=== PATIENT | female | born 2000 | race Caucasian/White ===

== ENCOUNTER 2022-10-08 12:46 | Outpatient (CLI) | payer OTHER ==
--- NOTE | 2022-10-08 15:51 | Ultrasound Report ---
PROCEDURE: OB Detailed Eval INDICATIONS: SUPERVISION OF OUTSIDE/PRIOR DATING DATA: Last menstrual period (LMP): 03/21/2022. LMP-based estimated date of delivery (JOSE): 12/26/2022. First dating scan (date and location): 05/30/2022. Estimated date of delivery (JOSE) from first dating scan: 01/09/2023. The below data below was generated using the ultrasound JOSE of 01/09/2023 TECHNIQUE: Real-time scanning was performed of the fetus, with image documentation and biometric measurements. Endovaginal scanning: No COMPARISON: None. FINDINGS: General: A single living intrauterine gestation is present. Presentation: Cephalic Placenta: Placental position is anterior, without previa. Amniotic fluid index: 18 cm, 36th percentile for gestational age. heart rate: 152 beats per minute. Maternal cervical canal: 3.2 cm long; normal length is 2.5 cm or more. biometrics: Biparietal diameter: 6.5 cm, 26 weeks 1 day Head circumference: 24.5 cm, 26 weeks 4 days Abdominal circumference: 21.6 cm, 26 weeks 1 day Femur length: 5.2 cm, 27 weeks 4 days Estimated gestational age from initial scan: not applicable. Composite gestational age from present scan: 26 weeks 4 days Estimated weight and percentile: 968 g, 36 percentile Measurement variability in biometric dating: +/- 10 days from 12-20 weeks gestation, +/- 2 weeks from 20-30 weeks gestation, +/- 3 weeks at 30 weeks gestation or later. Anatomic survey: Neuro: Ventricles are normal at less than 10 mm. Cisterna magna is normal at 3-11 mm. Cerebellum i s normal in size and morphology. Nuchal skin fold: Normal at less than 6 mm between 14 and 20 weeks gestational age. Face: Nose and lips, facial profile are normal. Spine: No evidence for spina bifida. Heart: 4-chambered heart is present, with normal ventricular outflow tracts. Diaphragm: Diaphragm is intact. Stomach: Left-sided stomach is present. Kidneys: No hydronephrosis. Normal is less than 5 mm in 2nd trimester, less than 7 mm in 3rd trimester. Cord: 3 vessel cord has orthotopic insertion. Bladder: Normal in size. Extremities: All 4 extremities are visualized. IMPRESSION: 1.Single living intrauterine at 26 weeks 4 days based on today's scan, concordant with firs t ultrasound. 2.Normal anatomy survey. Reviewed by: Matt Chan on 10/08/2022 3:50 PM PST Approved by: Matt Chan on 10/08/2022 3:50 PM PST Station ID: [id number]
== END 2022-10-08 12:47 | disposition home or self-care (01) ==
LOC: DI 12:46
PROVIDERS: ATTEND Nurse Practitioner
DX: Z34.92 Encounter for supervision of normal pregnancy, unspecified, second trimester (principal); Z3A.26 26 weeks gestation of pregnancy; Z36.89 Encounter for other specified antenatal screening

== ENCOUNTER 2022-10-10 10:15 | Outpatient (CLI) | payer OTHER ==
[2022-10-14 01:07] LABS: CHLAMYDIA TRACHOMATIS DNA NEGATIVE (NEGATIVE); NEISSERIA GONORRHOEAE DNA NEGATIVE (NEGATIVE); TRICHOMONAS VAGINALIS DNA NEGATIVE (NEGATIVE)
== END 2022-10-10 23:59 | disposition home or self-care (01) ==
LOC: LAB.WC 10:15
PROVIDERS: ATTEND Nurse Practitioner
DX: Z11.3 Encounter for screening for infections with a predominantly sexual mode of transmission (principal)
CPT/HCPCS: 87491; 87591; 87661

== ENCOUNTER 2022-10-21 11:39 | Outpatient (CLI) | payer OTHER ==
[2022-10-21 12:05] LABS: BASOPHILS % (AUTO) 0.2 %; EOSINOPHILS # (AUTO) 0.1 10^3/uL (0.0-0.7); EOSINOPHILS % (AUTO) 0.7 %; HCT - HEMATOCRIT 33.1 % (37.0-47.0); HGB - HEMOGLOBIN 10.6 g/dL (12.0-16.0); LYMPHOCYTES # (AUTO) 1.8 10^3/uL (1.5-3.5); LYMPHOCYTES % (AUTO) 20.4 %; MEAN CORPUSCULAR HEMOGLOBIN 27.7 pg (27.0-31.0); MEAN CORPUSCULAR VOLUME 86.6 fL (81.0-99.0); MONOCYTES # (AUTO) 0.8 10^3/uL (0.0-1.0); MONOCYTES % (AUTO) 8.8 %; NEUTROPHILS % (AUTO) 68.2 %; PLT - PLATELET COUNT 338 10^3/uL (130-450); RED BLOOD COUNT 3.82 10^6/uL (4.20-5.40); RED CELL DISTRIBUTION WIDTH 13.2 % (12.0-15.0); WHITE BLOOD COUNT 8.9 x10^3/uL (4.8-10.8)
== END 2022-10-21 11:40 | disposition home or self-care (01) ==
LOC: LAB 11:39
PROVIDERS: ATTEND Nurse Practitioner
DX: Z34.90 Encounter for supervision of normal pregnancy, unspecified, unspecified trimester (principal); Z36.89 Encounter for other specified antenatal screening
CPT/HCPCS: 36415; 82950; 85025; 86787

== ENCOUNTER 2022-10-23 11:35 | Outpatient (CLI) | payer OTHER ==
[2022-10-23 13:03] LABS: HCT - HEMATOCRIT 30.9 % (37.0-47.0); HGB - HEMOGLOBIN 9.9 g/dL (12.0-16.0); MEAN CORPUSCULAR HEMOGLOBIN 27.6 pg (27.0-31.0); MEAN CORPUSCULAR VOLUME 86.1 fL (81.0-99.0); MEAN PLATELET VOLUME 9.9 fL (7.9-10.8); RED BLOOD COUNT 3.59 10^6/uL (4.20-5.40); RED CELL DISTRIBUTION WIDTH 13.1 % (12.0-15.0); WHITE BLOOD COUNT 9.2 x10^3/uL (4.8-10.8)
== END 2022-10-23 11:36 | disposition home or self-care (01) ==
LOC: LAB 11:35
PROVIDERS: ATTEND Nurse Practitioner
DX: O99.019 Anemia complicating pregnancy, unspecified trimester (principal); Z36.89 Encounter for other specified antenatal screening
CPT/HCPCS: 36415; 82728; 82950; 85027

== ENCOUNTER 2022-11-14 20:33 | Outpatient (CLI) | payer OTHER ==
[2022-11-14 21:06] VITALS: BP 133/67
[2022-11-14] MEDS ORDERED: LACTATED RINGERS 1,000 ML IV STA (21:18)
[2022-11-14 22:10] LABS: BASOPHILS % (AUTO) 0.2 %; EOSINOPHILS # (AUTO) 0.1 10^3/uL (0.0-0.7); EOSINOPHILS % (AUTO) 0.7 %; HCT - HEMATOCRIT 35.6 % (37.0-47.0); HGB - HEMOGLOBIN 11.2 g/dL (12.0-16.0); LYMPHOCYTES # (AUTO) 2.4 10^3/uL (1.5-3.5); LYMPHOCYTES % (AUTO) 25.6 %; MEAN CORPUSCULAR HEMOGLOBIN 27.5 pg (27.0-31.0); MEAN CORPUSCULAR HGB CONC 31.5 g/dL (32.0-36.0); MEAN CORPUSCULAR VOLUME 87.3 fL (81.0-99.0); MEAN PLATELET VOLUME 10.4 fL (7.9-10.8); MONOCYTES % (AUTO) 10.7 %; NEUTROPHILS # (AUTO) 5.8 10^3/uL (1.5-6.6); NEUTROPHILS % (AUTO) 61.5 %; PLT - PLATELET COUNT 337 10^3/uL (130-450); RED BLOOD COUNT 4.08 10^6/uL (4.20-5.40); RED CELL DISTRIBUTION WIDTH 14.6 % (12.0-15.0); WHITE BLOOD COUNT 9.5 x10^3/uL (4.8-10.8)
--- NOTE | 2022-11-14 22:28 | PROVIDER PROGRESS NOTE ---
- HPI Chief Complaint: Pain, non-labor Current : Current EDU 01/09/23 Gestation 32 Weeks and 0 Days 2 Para 0 Vital Signs Temperature 98.4 F 11/14/22 21:05 Heart Rate 105 H 11/14/22 21:05 Respiratory Rate 17 11/14/22 21:05 Blood Pressure 133/67 H 11/14/22 21:05 O2 Saturation 100 11/14/22 21:05 Temperature 98.4 F 11/14/22 21:50 Heart Rate 105 H 11/14/22 21:05 Respiratory Rate 17 11/14/22 21:05 Blood Pressure 133/67 H 11/14/22 21:05 O2 Saturation 100 11/14/22 21:05 If not protocol: Oxygen Flow, liters/minute - Procedures OB Procedure Performed: NST Diagnosis/Indication for NST: labor NST Procedure: NST Procedure Start Date 11/14/22 Start Time 20:44 Patient States Movement Yes Baseline: 150 Moderate variability Presents acceleration 15 x 15 Absence deceleration Category 1 Service Date of procedure: 11/14/22 Findings: False labor at 32 weeks [place] contractions - Plan Plan: Repeat his CBC which showed 11.2/35.6 Hydration and reassurance helped her and she is willing to go home tonight. She is scheduled to have iron infusion on
--- NOTE | 2022-11-14 22:35 | PROCEDURE REPORT ---
- HPI Diagnosis/Indication for NST: labor Current EDU 01/09/23 Gestation 32 Weeks and 0 Days 2 Para 0 Vital Signs Temperature 98.4 F 11/14/22 21:05 Heart Rate 105 H 11/14/22 21:05 Respiratory Rate 17 11/14/22 21:05 Blood Pressure 133/67 H 11/14/22 21:05 O2 Saturation 100 11/14/22 21:05 Temperature 98.4 F 11/14/22 21:50 Heart Rate 105 H 11/14/22 21:05 Respiratory Rate 17 11/14/22 21:05 Blood Pressure 133/67 H 11/14/22 21:05 O2 Saturation 100 11/14/22 21:05 If not protocol: Oxygen Flow, liters/minute - NST Procedure NST Procedure Start Date 11/14/22 Start Time 20:44 Patient States Movement Yes Baseline: 150 Moderate variability Present acceleration Absent deceleration Category 1 - Results and Plan Findings/Impression: Reactive nonstress test Plan: She will be discharged tonight and will follow-up at the clinic for scheduled appointment
== END 2022-11-14 22:35 | disposition home or self-care (01) ==
LOC: FBP 20:33 → UNDOADMOB 20:33 → WFO 20:33 → UNDODISOB 22:35 → WFO 22:35 → EDSTATUS 11-17 15:08
PROVIDERS: ATTEND Obstetrics & Gynecology
DX: O47.03 False labor before 37 completed weeks of gestation, third trimester (principal); Z3A.32 32 weeks gestation of pregnancy
CPT/HCPCS: 59025; 85025; 96360; 99215; J7120

== ENCOUNTER 2022-11-24 09:58 | Outpatient (CLI) | payer OTHER ==
[2022-11-24 10:28] LABS: BASOPHILS % (AUTO) 0.3 %; EOSINOPHILS # (AUTO) 0.1 10^3/uL (0.0-0.7); EOSINOPHILS % (AUTO) 0.9 %; HCT - HEMATOCRIT 32.5 % (37.0-47.0); HGB - HEMOGLOBIN 10.3 g/dL (12.0-16.0); LYMPHOCYTES # (AUTO) 1.9 10^3/uL (1.5-3.5); LYMPHOCYTES % (AUTO) 21.3 %; MEAN CORPUSCULAR HEMOGLOBIN 27.3 pg (27.0-31.0); MEAN CORPUSCULAR HGB CONC 31.7 g/dL (32.0-36.0); MEAN CORPUSCULAR VOLUME 86.2 fL (81.0-99.0); MEAN PLATELET VOLUME 9.7 fL (7.9-10.8); MONOCYTES # (AUTO) 0.9 10^3/uL (0.0-1.0); MONOCYTES % (AUTO) 10.4 %; NEUTROPHILS # (AUTO) 5.7 10^3/uL (1.5-6.6); PLT - PLATELET COUNT 300 10^3/uL (130-450); RED BLOOD COUNT 3.77 10^6/uL (4.20-5.40); RED CELL DISTRIBUTION WIDTH 14.4 % (12.0-15.0)
[2022-11-24] MEDS ORDERED: FERRIC GLUCONATE 125 MG in SODIUM CHLORIDE 0.9% 100ML 100 ML IV ONE (10:30)
[2022-11-24 10:40] LABS: ALBUMIN 2.8 g/dL (3.2-5.5); ALBUMIN/GLOBULIN RATIO 0.9 (1.0-2.2); BILIRUBIN,TOTAL 0.5 mg/dL (0.2-1.0); CALCIUM 8.7 mg/dL (8.5-10.3); CREATININE 0.5 mg/dL (0.4-1.0); POTASSIUM 3.9 mmol/L (3.5-5.0)
--- NOTE | 2022-11-24 10:56 | PROVIDER PROGRESS NOTE ---
- Procedures NST Procedure: NST Procedure Start Time 20:44 Stop Time 22:20 - Plan Plan: 22yo at 33.3w with iron deficiency anemia in , third trimester. Presented for scheduled iron infusion. Also with persistent itching in . - Ferrlicit x1 given, CBC - CMP and bile acids drawn, follow up.
[2022-11-24 11:07] VITALS: BP 111/58
== END 2022-11-24 12:05 | disposition home or self-care (01) ==
LOC: WFO 09:58 → FBP 10:02 → WFO 12:05
PROVIDERS: ATTEND Obstetrics & Gynecology
DX: O99.013 Anemia complicating pregnancy, third trimester (principal); D50.9 Iron deficiency anemia, unspecified; Z3A.33 33 weeks gestation of pregnancy; O26.893 Other specified pregnancy related conditions, third trimester; L29.9 Pruritus, unspecified
CPT/HCPCS: 36415; 80053; 82239; 85025; 96365; J2916

== ENCOUNTER 2022-11-29 09:15 | Outpatient (CLI) | payer OTHER ==
[2022-11-29] MEDS ORDERED: LACTATED RINGERS 1,000 ML IV SCH (10:00)
[2022-11-29 10:06] LABS: BASOPHILS % (AUTO) 0.3 %; EOSINOPHILS % (AUTO) 0.2 %; LYMPHOCYTES # (AUTO) 0.7 10^3/uL (1.5-3.5); LYMPHOCYTES % (AUTO) 7.5 %; MEAN CORPUSCULAR HEMOGLOBIN 27.3 pg (27.0-31.0); MEAN CORPUSCULAR HGB CONC 32.3 g/dL (32.0-36.0); MEAN CORPUSCULAR VOLUME 84.7 fL (81.0-99.0); MEAN PLATELET VOLUME 10.4 fL (7.9-10.8); MONOCYTES # (AUTO) 0.9 10^3/uL (0.0-1.0); NEUTROPHILS # (AUTO) 7.5 10^3/uL (1.5-6.6); NEUTROPHILS % (AUTO) 79.2 %; NRBC ABSOLUTE COUNT (AUTO) 0.02 x10^3/uL; NUCLEATED RED BLOOD CELLS AUTO 0.2 /100WBC; PLT - PLATELET COUNT 234 10^3/uL (130-450); RED BLOOD COUNT 3.66 10^6/uL (4.20-5.40); RED CELL DISTRIBUTION WIDTH 15.9 % (12.0-15.0); WHITE BLOOD COUNT 9.5 x10^3/uL (4.8-10.8)
[2022-11-29 10:18] LABS: ALBUMIN 2.7 g/dL (3.2-5.5); ALBUMIN/GLOBULIN RATIO 0.8 (1.0-2.2); BILIRUBIN,TOTAL 0.5 mg/dL (0.2-1.0); CALCIUM 8.7 mg/dL (8.5-10.3); CREATININE 0.7 mg/dL (0.4-1.0); POTASSIUM 3.8 mmol/L (3.5-5.0); TOTAL PROTEIN 6.1 g/dL (6.7-8.2)
[2022-11-29] MEDS ORDERED: ACETAMINOPHEN 325 MG TABLET PO PRN ×2 (10:50→11:01)
[2022-11-29] MEDS ORDERED: ONDANSETRON 4 MG/2 ML VIAL IVP PRN (10:50)
--- NOTE | 2022-11-29 10:58 | PROVIDER PROGRESS NOTE ---
- HPI Chief Complaint: GI symptoms Current : Vital Signs Temperature 99.5 F 11/29/22 09:28 Temperature 99.5 F 11/29/22 10:34 Heart Rate Respiratory Rate Blood Pressure O2 Saturation If not protocol: Oxygen Flow, liters/minute - Procedures OB Procedure Performed: NST (Reactive nonstress test) Diagnosis/Indication for NST: Other (Coughing and generalized aches and vomiting) NST Procedure: NST Procedure Start Time 20:44 Stop Time 22:20 Baseline: 130 Moderate variability Present acceleration Negative deceleration Impression: Reactive nonstress test - Plan Plan: This 22-year-old 2 para 0 AB 1 34 weeks 1 day presented to the units with chief complaint of coughing nausea vomiting and generalized aches and she has not feeling good since . She was seen at the clinic on November 24 and she was scheduled to have iron infusion on Thursday. She was feeling good until when she developed all above-mentioned symptoms. Her just returned 7 days ago and he was ill before he returned. She had CBC with differential and CMP which showed anemia and other results were not remarkable. After she came she was given IV fluid and she started to feel better. She is going to be given Tylenol for aches and Zofran for her nausea problems and when she has a stabilized that she is going to be discharged home today. heart tones showed category 1 and nonstress test was reactive
--- NOTE | 2022-11-29 11:06 | PROCEDURE REPORT ---
- HPI Diagnosis/Indication for NST: Other (Severe coughing with nausea vomiting and generalized aches) Vital Signs Temperature 99.5 F 11/29/22 09:28 Temperature 99.5 F 11/29/22 10:34 Heart Rate Respiratory Rate Blood Pressure O2 Saturation If not protocol: Oxygen Flow, liters/minute - NST Procedure NST Procedure 34 weeks 1 day gestation Start Time 20:44 Stop Time 22:20 Indication: Generalized aches with nausea vomiting and severe coughing Baseline: 130 Moderate variability Present acceleration 15/15 Negative deceleration Impression reactive nonstress test Plan discharge home and keep the scheduled appointment
[2022-11-29 13:42] VITALS: BP 91/45
== END 2022-11-29 13:57 | disposition home or self-care (01) ==
LOC: WFO 09:15 → FBP 09:18 → WFO 13:57
PROVIDERS: ATTEND Obstetrics & Gynecology
DX: O99.891 Other specified diseases and conditions complicating pregnancy (principal); R05.9 Cough, unspecified; R11.2 Nausea with vomiting, unspecified; Z3A.34 34 weeks gestation of pregnancy; Z20.822 Contact with and (suspected) exposure to COVID-19
CPT/HCPCS: 36415; 59025; 80053; 85025; 87635; 96361; 96374; 99214; A9270; J7120

== ENCOUNTER 2022-12-01 10:02 | Outpatient (CLI) | payer OTHER ==
[2022-12-01] MEDS ORDERED: FERRIC GLUCONATE 125 MG in SODIUM CHLORIDE 0.9% 100ML 100 ML IV ONE (10:40)
[2022-12-01 11:02] VITALS: BP 106/61
== END 2022-12-01 12:05 | disposition home or self-care (01) ==
LOC: WFO 10:02 → FBP 10:03 → WFO 12:05
PROVIDERS: ATTEND Nurse Practitioner
DX: O99.013 Anemia complicating pregnancy, third trimester (principal); D50.9 Iron deficiency anemia, unspecified; Z3A.34 34 weeks gestation of pregnancy
CPT/HCPCS: 96365; J2916

== ENCOUNTER 2022-12-08 09:58 | Outpatient (CLI) | payer OTHER ==
[2022-12-08 10:34] VITALS: BP 111/64
[2022-12-08] MEDS ORDERED: FERRIC GLUCONATE 125 MG in SODIUM CHLORIDE 0.9% 100ML 100 ML IV ONE (10:40)
== END 2022-12-08 11:40 | disposition home or self-care (01) ==
LOC: WFO 09:58 → FBP 09:59 → WFO 11:40
PROVIDERS: ATTEND Obstetrics & Gynecology
DX: O99.013 Anemia complicating pregnancy, third trimester (principal); D50.9 Iron deficiency anemia, unspecified; Z3A.35 35 weeks gestation of pregnancy
CPT/HCPCS: 96365; J2916

== ENCOUNTER 2022-12-12 10:15 | Outpatient (CLI) | payer OTHER ==
[2022-12-12 10:44] LABS: RUPTURE OF MEMBRANES PLUS NEGATIVE (NEGATIVE)
== END 2022-12-12 23:59 | disposition home or self-care (01) ==
LOC: LAB 10:15
PROVIDERS: ATTEND Nurse Practitioner
DX: Z36.89 Encounter for other specified antenatal screening (principal)
CPT/HCPCS: 84112; 87797

== ENCOUNTER 2022-12-19 10:20 | Outpatient (CLI) | payer OTHER ==
[2022-12-19 10:31] LABS: HCT - HEMATOCRIT 37.1 % (37.0-47.0); HGB - HEMOGLOBIN 11.7 g/dL (12.0-16.0); MEAN CORPUSCULAR HEMOGLOBIN 26.9 pg (27.0-31.0); MEAN CORPUSCULAR HGB CONC 31.5 g/dL (32.0-36.0); MEAN CORPUSCULAR VOLUME 85.3 fL (81.0-99.0); MEAN PLATELET VOLUME 10.4 fL (7.9-10.8); RED BLOOD COUNT 4.35 10^6/uL (4.20-5.40); RED CELL DISTRIBUTION WIDTH 16.6 % (12.0-15.0); WHITE BLOOD COUNT 8.9 x10^3/uL (4.8-10.8)
[2022-12-20 05:12] LABS: RPR Non Reactive (Non Reactive)
[2022-12-21 05:08] LABS: HCV AB Non Reactive (Non Reactive)
== END 2022-12-19 10:21 | disposition home or self-care (01) ==
LOC: LAB 10:20
PROVIDERS: ATTEND Obstetrics & Gynecology
DX: O99.019 Anemia complicating pregnancy, unspecified trimester (principal); D50.9 Iron deficiency anemia, unspecified
CPT/HCPCS: 36415; 82728; 85027; 86592; 86803

== ENCOUNTER 2022-12-25 10:38 | Outpatient (CLI) | payer OTHER ==
[2022-12-25 11:00] VITALS: BP 120/76
--- NOTE | 2022-12-25 13:20 | PROCEDURE REPORT ---
- HPI Diagnosis/Indication for NST: Other Current EDU 01/09/23 Gestation 37 Weeks and 6 Days 2 Para 0 Vital Signs Temperature 98.2 F 12/25/22 10:45 Heart Rate 100 12/25/22 10:45 Respiratory Rate 17 12/25/22 10:45 Blood Pressure 120/76 12/25/22 10:45 O2 Saturation 100 12/25/22 10:45 Temperature 98.2 F 12/25/22 11:00 Heart Rate 100 12/25/22 10:45 Respiratory Rate 17 12/25/22 10:45 Blood Pressure 120/76 12/25/22 10:45 O2 Saturation 100 12/25/22 10:45 If not protocol: Oxygen Flow, liters/minute - NST Procedure NST Procedure Start Date 12/25/22 Start Time 10:48 Stop Time 11:25 Vibroacoustic Stimulation Used No Patient States Movement Yes EFM: 140s, moderate variability, positive accelerations, no decelerations [place]: contractions q4m NST reactive/Cat 2 Performed and read on 12/25/22
--- NOTE | 2022-12-25 13:23 | PROVIDER PROGRESS NOTE ---
- HPI Chief Complaint: Labor Check Current : Current EDU 01/09/23 Gestation 37 Weeks and 6 Days 2 Para 0 Vital Signs Temperature 98.2 F 12/25/22 10:45 Heart Rate 100 12/25/22 10:45 Respiratory Rate 17 12/25/22 10:45 Blood Pressure 120/76 12/25/22 10:45 O2 Saturation 100 12/25/22 10:45 Temperature 98.2 F 12/25/22 11:00 Heart Rate 100 12/25/22 10:45 Respiratory Rate 17 12/25/22 10:45 Blood Pressure 120/76 12/25/22 10:45 O2 Saturation 100 12/25/22 10:45 If not protocol: Oxygen Flow, liters/minute - Procedures OB Procedure Performed: NST NST Procedure: NST Procedure Start Date 12/25/22 Start Time 10:48 Stop Time 11:25 Vibroacoustic Stimulation Used No Patient States Movement Yes EFM: 140s, moderate variability, positive accelerations, no decelerations [place]: contractions q4m NST reactive/Cat 1 Performed and read 12/25/22 Service Date of procedure: 12/25/22 - Plan Plan: 22yo at 37.6w presenting with contractions. Denies leaking fluid or vaginal bleeding. Good movement. care at [facility]. Complicated by anemia treated with iron infusion. VSS GEN: NAD CV: Regular rate NST reactive SVE per RN: /-1 22yo at 37.6w, false labor - NST reactive - Labor precautions - Follow up as scheduled
== END 2022-12-25 11:45 | disposition home or self-care (01) ==
LOC: WFO 10:38 → FBP 10:40 → WFO 11:45
PROVIDERS: ATTEND Obstetrics & Gynecology
DX: O47.1 False labor at or after 37 completed weeks of gestation (principal); O99.013 Anemia complicating pregnancy, third trimester; Z3A.37 37 weeks gestation of pregnancy
CPT/HCPCS: 59025; 99213; 99215

== ENCOUNTER 2023-07-07 09:11 | Outpatient (CLI) | payer OTHER ==
--- NOTE | 2023-07-07 12:40 | Ultrasound Report ---
PROCEDURE: Abdomen Limited INDICATIONS: ABD MASS TECHNIQUE: Real-time focused scanning was performed of the abdomen, with image documentation. COMPARISONS: None. FINDINGS: Periumbilical region was scanned to assess for hernia. There are no visible fascial defects or hernia sac in the subcutaneous tissue. No change of Valsalva maneuver. IMPRESSION: 1. No sonographic evidence of anterior abdominal wall hernia. Consider noncontrast CT scan with Valsa lva maneuver if there is ongoing concern for hernia. Reviewed by: Fani Herbert MD on 07/07/2023 12:39 PM PST Approved by: Fani Herbert MD on 07/07/2023 12:39 PM PST Station ID: [id number]
== END 2023-07-07 09:12 | disposition home or self-care (01) ==
LOC: DI 09:11
PROVIDERS: ATTEND Nurse Practitioner
DX: R19.00 Intra-abdominal and pelvic swelling, mass and lump, unspecified site (principal)

== ENCOUNTER 2023-07-14 16:15 | Outpatient (CLI) | payer OTHER ==
[2023-07-14 16:35] LABS: HCT - HEMATOCRIT 42.9 % (37.0-47.0); HGB - HEMOGLOBIN 13.8 g/dL (12.0-16.0); MEAN CORPUSCULAR HEMOGLOBIN 27.3 pg (27.0-31.0); MEAN CORPUSCULAR HGB CONC 32.2 g/dL (32.0-36.0); MEAN PLATELET VOLUME 9.7 fL (7.9-10.8); RED BLOOD COUNT 5.05 10^6/uL (4.20-5.40); RED CELL DISTRIBUTION WIDTH 12.9 % (12.0-15.0); WHITE BLOOD COUNT 8.1 x10^3/uL (4.8-10.8)
[2023-07-14 17:18] LABS: THYROID STIMULATING HORMONE 1.11 uIU/mL (0.34-5.60)
[2023-07-14 17:24] LABS: FERRITIN 15.8 ng/mL (11.0-306.8)
== END 2023-07-14 16:16 | disposition home or self-care (01) ==
LOC: LAB 16:15
PROVIDERS: ATTEND Nurse Practitioner
DX: D64.9 Anemia, unspecified (principal); N93.9 Abnormal uterine and vaginal bleeding, unspecified
CPT/HCPCS: 36415; 82728; 84443; 84702; 85027

== ENCOUNTER 2023-12-28 20:31 | Emergency (ER) | payer OTHER ==
[2023-12-28 20:44] VITALS: O2SAT 100
--- NOTE | 2023-12-28 20:50 | ED Physician Documentation ---
History of Present Illness - Stated complaint Stated Complaint: L SIDE PX - Chief complaint Chief Complaint: Abd Pain - Additonal information Additional information: 23-year-old female presented to the emergency department with left-sided flank pain. The pain is intermittent but ongoing and getting progressively worse x 2 months. No associated nausea, vomiting, dysuria, hematuria. Reports had similar pain a year ago on the right side which led to her gallbladder being removed. Denies other relevant past medical history and does not take medications regularly. Review of Systems Constitutional: denies: Fever Eyes: denies: Loss of vision Ears: denies: Loss of hearing Nose: denies: Rhinorrhea / runny nose Throat: denies: Dental pain / toothache Cardiac: denies: Chest pain / pressure Respiratory: denies: Dyspnea GI: reports: Abdominal Pain. denies: Nausea, Vomiting, Constipation : reports: Other (Positive for flank pain) Skin: denies: Rash Musculoskeletal: denies: Neck pain Neurologic: denies: Generalized weakness PD PAST MEDICAL HISTORY - Past Medical History Past Medical History: Yes Cardiovascular: None Respiratory: None Neuro: None Endocrine/Autoimmune: None GI: None : None Psych: Anxiety Musculoskeletal: None Derm: None - Past Surgical History Past Surgical History: Yes General: Cholecystectomy - Present Medications Home Medications: Ambulatory Orders Medication Instructions Recorded Confirmed Acetaminophen [Acetaminophen Extra 1,000 mg PO Q8H PRN #60 tablet 11/29/22 Strength] Ondansetron Odt [Zofran Odt] 8 mg TL Q8H PRN #30 tablet 11/29/22 Docusate Sodium 100Mg Capsule 100 mg PO BID #60 cap 12/28/23 [Colace 100Mg Capsule] polyethylene glycoL 3350 [Miralax] 17 gm PO DAILY #30 packet 12/28/23 - Allergies Allergies/Adverse Reactions: Allergies Allergy/AdvReac Type Severity Reaction Status Date / Time No Known Drug Allergies Allergy Verified 12/28/23 20:34 - Social History Does the pt smoke?: No Smoking Status: Never smoker Does the pt drink ETOH?: Yes Does the pt have substance abuse?: No - Immunizations Immunizations are current?: Yes - POLST Patient has POLST: No PD ED PE NORMAL - General General: Alert and oriented X 3, No acute distress, Well developed/nourished - HEENT HEENT: Atraumatic - Neck Neck: Supple, no meningeal sign, No bony TTP, No adenopathy - Cardiac Cardiac: RRR - Respiratory Respiratory: No respiratory distress, Clear bilaterally - Abdomen Abdomen: Normal bowel sounds - Female Female : Deferred - Rectal Rectal: Deferred - Back Back: No CVA TTP, No spinal TTP - Derm Derm: Normal color - Extremities Extremities: No deformity - Neuro Neuro: Alert and oriented X 3, range conservationist 2-12 intact, No motor deficit, Normal speech Results - Vitals Vitals: Vital Signs - 24 hr 12/28/23 20:34 Temperature 36.6 C Heart Rate 80 Respiratory 16 Rate Blood Pressure 132/90 H O2 Saturation 100 Oxygen O2 Source Room air - Labs Labs: Laboratory Tests 12/28/23 12/28/23 12/28/23 20:45 20:45 21:05 WBC 9.6 RBC 5.32 Hgb 14.6 Hct 44.5 MCV 83.6 MCH 27.4 MCHC 32.8 RDW 13.4 Plt Count 322 MPV 10.6 Neut # (Auto) 4.5 Lymph # (Auto) 4.2 H Upson # (Auto) 0.7 Eos # (Auto) 0.1 Baso # (Auto) 0.0 Absolute Nucleated RBC 0.00 Nucleated RBC % 0.0 Sodium 138 Potassium 3.7 Chloride 105 Carbon Dioxide 27 Anion Gap 6.0 BUN 18 Creatinine 0.7 Estimated GFR (MDRD) 103 Glucose 78 Calcium 10.2 Total Bilirubin 0.3 AST 18 ALT 29 Alkaline Phosphatase 82 Total Protein 7.6 Albumin 4.7 Globulin 2.9 Albumin/Globulin Ratio 1.6 Lipase 50 Urine Color YELLOW Urine Clarity CLEAR Urine pH 6.0 Ur Specific [place] 1.020 Urine Protein NEGATIVE Urine Glucose (UA) NEGATIVE Urine Ketones NEGATIVE Urine Occult Blood NEGATIVE Urine Nitrite NEGATIVE Urine Bilirubin NEGATIVE Urine Urobilinogen 0.2 (NORMAL) Ur Leukocyte Esterase NEGATIVE Ur Microscopic Review NOT INDICATED Urine Culture Comments NOT INDICATED Urine HCG, Qual NEGATIVE PD Medical Decision Making - ED course Complexity details: reviewed results, considered differential, d/w patient ED course: Patient 23-year-old female presenting with 2-month history of left-sided flank and abdominal pain. Abdominal exam is benign with no focal, tenderness, guarding, rebound rigidity or indications of peritonitis. Initial differential diagnosis included but not limited to nephrolithiasis. She did endorse for some increased pain with deep inspiration however there was no clearly pleuritic aspect to her pain and she is low risk [place], PERC negative here in the emergency department. Labs are all very reassuring. CT of the abdomen pelvis does not show any acute intra- abdominal pathology but does show rather increased stool burden. Will initiate course of medications to act as bowel regimen and have her follow-up with her primary care doctor. Departure - Departure Disposition: 01 Home, Self Care Clinical Impression: Constipation Qualifiers: Constipation type: unspecified constipation type Qualified Code(s): K59.00 - Constipation, unspecified Instructions: ED Constipation Prescriptions: Docusate Sodium 100Mg Capsule [Colace 100Mg Capsule] 100 mg PO BID #60 cap polyethylene glycoL 3350 [Miralax] 17 gm PO DAILY #30 packet Comments: Thank you for allowing us to care for you today [facility]. Today in the emergency room you were evaluated for any possible dangerous or life-threatening medical emergency. Overall the test performed in the emergency department today including her blood work and a CT scan of her abdomen and pelvis were all very reassuring. There is no dangerous or surgical cause for your symptoms found. He did have some increase in stool burden and like you to begin a course of medications to act as a bowel regimen. This include daily MiraLAX as well as twice daily Colace. Like to encourage you to increase your intake and fiber for foods and natural probiotics. Please drink plenty of fluids. A moderate amount of physical activity daily is recommended for overall bowel health as well as general health and wellbeing. Please follow-up with your primary care doctor concerning your ER evaluation. If it anytime you develop any new or worsening symptoms please not hesitate to return. Forms: PCP List
[2023-12-28 21:02] LABS: BASOPHILS % (AUTO) 0.3 %; EOSINOPHILS # (AUTO) 0.1 10^3/uL (0.0-0.7); EOSINOPHILS % (AUTO) 1.3 %; HCT - HEMATOCRIT 44.5 % (37.0-47.0); HGB - HEMOGLOBIN 14.6 g/dL (12.0-16.0); LYMPHOCYTES # (AUTO) 4.2 10^3/uL (1.5-3.5); LYMPHOCYTES % (AUTO) 43.9 %; MEAN CORPUSCULAR HEMOGLOBIN 27.4 pg (27.0-31.0); MEAN CORPUSCULAR HGB CONC 32.8 g/dL (32.0-36.0); MEAN CORPUSCULAR VOLUME 83.6 fL (81.0-99.0); MEAN PLATELET VOLUME 10.6 fL (7.9-10.8); MONOCYTES # (AUTO) 0.7 10^3/uL (0.0-1.0); MONOCYTES % (AUTO) 7.5 %; NEUTROPHILS # (AUTO) 4.5 10^3/uL (1.5-6.6); NEUTROPHILS % (AUTO) 46.8 %; PLT - PLATELET COUNT 322 10^3/uL (130-450); RED BLOOD COUNT 5.32 10^6/uL (4.20-5.40); RED CELL DISTRIBUTION WIDTH 13.4 % (12.0-15.0); WHITE BLOOD COUNT 9.6 x10^3/uL (4.8-10.8)
[2023-12-28 21:15] LABS: ALBUMIN 4.7 g/dL (3.2-5.5); ALBUMIN/GLOBULIN RATIO 1.6 (1.0-2.2); BILIRUBIN,TOTAL 0.3 mg/dL (0.2-1.0); CALCIUM 10.2 mg/dL (8.5-10.3); CREATININE 0.7 mg/dL (0.6-1.3); POTASSIUM 3.7 mmol/L (3.5-4.5); TOTAL PROTEIN 7.6 g/dL (6.4-8.9)
[2023-12-28] MEDS ORDERED: iohexoL-300 100 ML VIAL ONE (21:26)
[2023-12-28 21:33] LABS: BILIRUBIN,URINE NEGATIVE (NEGATIVE); GLUCOSE, URINE (UA) NEGATIVE (NEGATIVE); KETONES,URINE (UA) NEGATIVE (NEGATIVE); LEUKOCYTE ESTERASE, URINE NEGATIVE (NEGATIVE); NITRITE,URINE NEGATIVE (NEGATIVE); OCCULT BLOOD,URINE NEGATIVE (NEGATIVE); PROTEIN,URINE NEGATIVE (NEGATIVE); UROBILINOGEN,URINE 0.2 (NORMAL) E.U./dL (NORMAL)
[2023-12-28 21:35] LABS: CLARITY,URINE CLEAR (CLEAR); HCG UR QUAL NEGATIVE
[2023-12-28] MEDS: iohexoL-300 100 ML VIAL IVP ONE (21:54)
--- NOTE | 2023-12-28 22:19 | CT Report ---
PROCEDURE: Abdomen/Pelvis W INDICATIONS: left flank pain CONTRAST: Omni 300, 100mls TECHNIQUE: After the administration of intravenous contrast, a CT scan of the abdomen and pelvis was performed. Images were recorded and evaluated at appropriate window settings. Reformats: coronal and sagittal. F or radiation dose reduction, the following was used: automated exposure control, adjustment of mA and /or kV according to patient size. COMPARISON: None. FINDINGS: Image quality: Diagnostic Lower chest: Unremarkable lung bases. Liver: Unremarkable Gallbladder and biliary system: Gallbladder is absent. No biliary ductal dilation. Pancreas: No ductal dilation Spleen: Nonenlarged Adrenals: No discrete nodule Kidneys: No solid mass or hydronephrosis. Subcentimeter lesions are too small characterize, usually c ysts. No obstructing calcified stone identified on this postcontrast CT. Vessels and lymph nodes: The main portal vein is patent. No abdominal aortic aneurysm or pathologic l ymph nodes by size criteria Bowel and peritoneum: Stomach is moderately distended. No small bowel obstruction. There is a moderat e rectal stool ball. Fecal material in the distal ileum usually indicates slow transit time. No patho logic ascites. Body wall: Small fat-containing umbilical hernia. Pelvis: Bladder is unremarkable. Reproductive organs are not well evaluated on CT, overall unremarkab le and likely physiologic physiologic. Bones: There is no acute or suspicious osseous findings. IMPRESSION: No obstructing calcified stone or hydronephrosis. No acute abdominopelvic abnormality. Moderate distention of the stomach. Moderate rectal stool ball. No small bowel obstruction. Other findings as above. Reviewed by: Tai Shaw MD on 12/28/2023 10:18 PM PDT Approved by: Tai Shaw MD on 12/28/2023 10:18 PM PDT Station ID: [id number]
[2023-12-28 22:36] VITALS: BP 131/78
== END 2023-12-28 22:32 | disposition home or self-care (01) ==
LOC: ED 20:31
DX: K59.00 Constipation, unspecified (principal)
CPT/HCPCS: 36415; 74177; 80053; 81003; 81025; 83690; 85025; 99283; 99284; Q9967; 81001; 87086